=== PATIENT | female | born 1985 | race African-American/Black ===

== ENCOUNTER 2017-01-05 16:37 | Emergency (ER) | payer OTHER ==
[~2017-01-05 16:37] MED LIST: FLEXERIL PO; ULTRAM PO
[2017-01-05 19:00] LABS: URINE SOURCE CLEAN CATCH
[2017-01-05 19:11] LABS: URINE APPEARANCE CLOUDY; URINE BILIRUBIN NEG (NEG); URINE BLOOD 1+ (NEG); URINE COLOR YELLOW; URINE GLUCOSE NEG (NEG); URINE KETONE 3+ (NEG); URINE LEUKOCYTE ESTERASE NEG (NEG); URINE NITRATE NEG (NEG); URINE PH 5.5 (5-8); URINE PROTEIN 3+ (NEG); URINE SPECIFIC GRAVITY 1.019 (1.003-1.035)
[2017-01-05 19:11] LABS: BASOPHIL% 0.5 % (0-2.5); EOSINOPHIL# 0.1 X10e3 (0-0.7); EOSINOPHIL% 0.6 % (0.0-7.0); HEMATOCRIT 49.6 % (35.0-45.0); HEMOGLOBIN 15.5 gm/dL (12.0-16.0); LYMPHOCYTE# 1.5 X10e3 (1.0-3.5); LYMPHOCYTE% 16.2 % (17.0-45.0); MEAN CELL VOLUME 82.1 FL (83-96); MEAN CORPUSCULAR HEMOGLOBIN 25.7 PG (28-34); MEAN CORPUSCULAR HGB CONC 31.3 g/dL (30-36); MEAN PLATELET VOLUME 9.5 FL (6.5-11.5); MONOCYTE# 0.8 X10e3 (0-1.0); MONOCYTE% 8.4 % (3.0-12.0); NEUTROPHIL# 6.8 X10e3 (1.5-7.1); NEUTROPHIL% 74.3 % (40-75); RED BLOOD COUNT 6.04 X10e (3.90-5.30); WHITE BLOOD COUNT 9.1 X10e3 (4.0-10.5)
[2017-01-05 19:14] LABS: URINE BACTERIA AUWI NEG (NEGATIVE); URINE SQUAMOUS EPITHELIAL CELL FEW /[HPF]; UWBCS1 AUWI 0-2 (0-5)
[2017-01-05 19:32] LABS: DIFF IND YES; PLATELET COUNT 202 X10e3 (140-420)
[2017-01-05 19:36] LABS: ANISOCYTOSIS MOD; PLATELET ESTIMATE NORMAL (NORMAL)
[2017-01-05 19:37] LABS: POIKILOCYTOSIS SL
[2017-01-05 19:45] LABS: ALBUMIN SERUM 5.2 g/dL (3.5-5.0); BILIRUBIN, DIRECT 0.1 mg/dL (0.0-0.2); BILIRUBIN,INDIRECT 1.5 mg/dL (0.0-0.9); BILIRUBIN,TOTAL 1.6 mg/dL (0.2-2.0); BUN/CREATININE RATIO 12.72; CALCIUM SERUM 10.1 mg/dL (8.4-10.2); CREATININE SERUM 1.1 mg/dL (0.6-1.4); PROTEIN TOTAL SERUM 10.3 g/dL (6.0-8.3)
== END 2017-01-05 21:10 | disposition home or self-care (01) ==
LOC: CED 16:37
PROVIDERS: Emergency Medicine
DX: K29.00 Acute gastritis without bleeding (principal); F17.210 Nicotine dependence, cigarettes, uncomplicated; Z88.5 Allergy status to narcotic agent
CPT/HCPCS: 36415; 80048; 80076; 81003; 83690; 84703; 85025; 96361; 96374; 99284; J2405